=== PATIENT | female | born 2000 | race Caucasian/White ===

== ENCOUNTER 2024-09-24 12:05 | Outpatient (CLI) | payer OTHER | END 2024-09-24 12:06 | disposition home or self-care (01) | LOC: CSHULT 12:05 | DX: Z33.1 Pregnant state, incidental (principal); Z3A.27 27 weeks gestation of pregnancy | CPT/HCPCS: 76805 ==

== ENCOUNTER 2024-12-12 05:41 | Inpatient (IN) | payer OTHER ==
[2024-12-11 11:14] LABS: Hematocrit 37.5 % (34.9-44.5); Hemoglobin 12.9 g/dL (12.0-15.5); Mean Corpuscular HGB CONC 34.4 g/dL (32.0-36.0); Mean Corpuscular Hemoglobin 31.5 pg (27.0-33.0); Mean Corpuscular Volume 91.5 fL (81.6-98.3); Mean Platelet Volume 10.2 fL (7.4-10.4); Platelet Count 283 10x3/uL (150-450); RBC Distribution Width 12.1 % (11.5-14.5); White Blood Cell (WBC) Count 9.73 10x3/uL (3.5-10.5)
[2024-12-11 11:50] LABS: Syphilis Antibody Nonreactive (Nonreactive); Syphilis Antibody Index 0.05 S/CO (<1.00 Non-Reactive)
[2024-12-11 11:52] LABS: HBsAg Index 0.17 S/CO (0-0.99); HIV (1/2) Antibody/Antigen Non-Reactive (NonReactive); HIV 1/2 INDEX 0.17 S/CO (<1.00); Hep B Surf Ag Non-Reactive S/CO (NonReactive)
[2024-12-12 06:26] VITALS: BMI 26.2
[2024-12-12] MEDS ORDERED: Meperidine HCl/PF 25 MG (1 mL) VIAL SLOW IVP PRN (07:28)
[2024-12-12] MEDS ORDERED: fentaNYL 50 mcg/mL 1 mL Vial SLOW IVP PRN (07:28)
[2024-12-12] MEDS ORDERED: Ondansetron PF 4 MG/2 ML Vial IVP PRN ×3 (07:28→07:41)
[2024-12-12] MEDS ORDERED: Moisturizing Cream (Eucerin) 113 GM JAR TOP PRN (07:28)
[2024-12-12] MEDS ORDERED: diphenhydrAMINE 50 MG/ML VIAL IVP PRN (07:28)
[2024-12-12] MEDS ORDERED: Naloxone HCl 0.4 mg/ml Vial IVP PRN ×2 (07:28)
[2024-12-12] MEDS ORDERED: Naloxone HCl 0.4 mg/ml Vial IV PRN (07:28)
[2024-12-12] MEDS ORDERED: Promethazine HCl 25 MG/ML VIAL IM PRN ×3 (07:28→10:52)
[2024-12-12] MEDS ORDERED: Communication Order-Pharmacy FS SCH (07:30)
[2024-12-12] MEDS ORDERED: Diphenoxylate HCl/Atropine Tablet PO PRN (07:41)
[2024-12-12] MEDS ORDERED: Carboprost 250 MCG/ML AMP IM PRN (07:41)
[2024-12-12] MEDS ORDERED: Famotidine/PF 20 mg/2ml Vial SLOW IVP PRN (07:41)
[2024-12-12] MEDS ORDERED: Tranexamic Acid 1,000 MG/10 ML VIAL IVP PRN (07:41)
[2024-12-12] MEDS ORDERED: hydrALAZINE 20 MG/ML VIAL SLOW IVP PRN ×2 (07:41→10:52)
[2024-12-12] MEDS ORDERED: Misoprostol 200 MCG TAB PR PRN (07:41)
[2024-12-12] MEDS ORDERED: Methylergonovine 0.2 MG/ML VIAL IM PRN (07:41)
[2024-12-12] MEDS ORDERED: Bicitra 30 ML UDCUP PO PRN (07:41)
[2024-12-12] MEDS ORDERED: CEFAZOLIN 2 GM in Sodium Chloride 0.9% 100 ML IVPB SCH (07:45)
[2024-12-12] MEDS ORDERED: Lactated Ringer's 1,000 ML IV SCH (07:45)
[2024-12-12] MEDS ORDERED: Oxytocin 30 units/NS 500 ML 500 ML IV SCH (07:45)
[2024-12-12] MEDS ORDERED: Meperidine HCl/PF 25 MG (1 mL) VIAL IM PRN (10:52)
[2024-12-12] MEDS ORDERED: Boostrix 0.5 ML (Tdap) VIAL (>/=7 yrs of age) IM ONE (10:52)
[2024-12-12] MEDS ORDERED: HYDROcodone/Acetaminophen 5/325 mg Tablet PO PRN (10:52)
[2024-12-12] MEDS ORDERED: diphenhydrAMINE 25 MG CAP PO PRN (10:52)
[2024-12-12] MEDS ORDERED: Bisacodyl 10 MG SUPP PR PRN (10:52)
[2024-12-12] MEDS ORDERED: Lanolin Ointment 7 GM TUBE TOP PRN (10:52)
[2024-12-12] MEDS: CEFAZOLIN 2 GM VIAL ONE (11:02)
[2024-12-12] MEDS: Dexmedetomidine 200 MCG/2 ML VIAL ONE (11:03)
[2024-12-12] MEDS: Oxytocin 10 UNITS/ML VIAL ONE (11:03)
[2024-12-12] MEDS: Ondansetron PF 4 MG/2 ML Vial ONE (11:03)
[2024-12-12] MEDS: Ketorolac Tromethamine 30 MG (1 mL) VIAL ONE (11:03)
[2024-12-12] MEDS: Phenylephrine 40 MG/NS 250 ML 500 ML ONE (11:03)
[2024-12-12] MEDS: Morphine PF 10 MG/10 ML VIAL ONE (11:03)
[2024-12-12] MEDS: PHENYLEPHRINE-NS 100 MCG/ML 10 ML SYRINGE ONE ×2 (11:03→11:04)
[2024-12-12] MEDS: ePHEDrine Sulfate 50 MG/10 ML VIAL ONE (11:03)
[2024-12-12] MEDS: Phenylephrine 40 MG/NS 250 ML 250 ML ONE (11:04)
[2024-12-12] MEDS: Ondansetron PF 4 MG/2 ML Vial IVP PRN (11:48)
[2024-12-12] MEDS ORDERED: Ketorolac Tromethamine 30 MG (1 mL) VIAL IVP SCH (14:30)
[2024-12-12] MEDS ORDERED: Ketorolac Tromethamine 30 MG (1 mL) VIAL IVP PRN (14:30)
[2024-12-12] MEDS: Ketorolac Tromethamine 30 MG (1 mL) VIAL IVP SCH (14:50)
[2024-12-12] MEDS: Prenatal Vitamin 1 TAB PO SCH (15:14)
[2024-12-12] MEDS: Ferrous Sulfate 325 MG TAB PO SCH ×2 (15:14→21:10)
[2024-12-12] MEDS: Docusate 100 MG CAP PO SCH ×2 (15:14→20:57)
[2024-12-13 05:38] LABS: Hematocrit 27.2 % (34.9-44.5); Hemoglobin 9.5 g/dL (12.0-15.5); Mean Corpuscular HGB CONC 34.9 g/dL (32.0-36.0); Mean Corpuscular Hemoglobin 31.9 pg (27.0-33.0); Mean Corpuscular Volume 91.3 fL (81.6-98.3); Mean Platelet Volume 10.2 fL (7.4-10.4); Platelet Count 196 10x3/uL (150-450); RBC Distribution Width 12.3 % (11.5-14.5); Red Blood Cell (RBC) Count 2.98 10x6/uL (3.90-5.03); White Blood Cell (WBC) Count 11.81 10x3/uL (3.5-10.5)
[2024-12-13] MEDS: Prenatal Vitamin 1 TAB PO SCH (08:07)
[2024-12-13] MEDS: HYDROcodone/Acetaminophen 5/325 mg Tablet PO PRN (10:06)
[2024-12-13] MEDS: Ibuprofen 800 MG TAB PO SCH (14:56)
[2024-12-14] MEDS: Simethicone Chewable 80 MG TAB PO PRN (09:35)
[2024-12-14] MEDS: Milk Of Magnesia 30 ML UDCUP PO PRN (18:23)
[2024-12-14] MEDS: Preparation H Ointment 28 GM TUBE TOP PRN (18:23)
[2024-12-15 08:05] VITALS: BP 126/85; TEMP 98.5
== END 2024-12-15 12:45 | disposition home or self-care (01) | DRG 788 ==
LOC: CSHLD 05:41 → CSHPP 10:30
PROVIDERS: ADMIT Family Medicine; ATTEND Family Medicine
PROC: 10D00Z1 Extraction of Products of Conception, Low, Open Approach (ICD-10-PCS; principal; 2024-12-12)
DX: O32.1XX0 Maternal care for breech presentation, not applicable or unspecified (principal); Z3A.39 39 weeks gestation of pregnancy; Z37.0 Single live birth; Z79.82 Long term (current) use of aspirin
CPT/HCPCS: 36415; 51702; 85027; 86780; 86850; 86900; 86901; 87340; 87389; J1885; J2274; J2405; J2590